=== PATIENT | male | born 2000 | race Two or more races ===

== ENCOUNTER 2019-02-22 23:58 | Emergency (ER) | payer SELFPAY ==
[~2019-02-22] VITALS: Ht 190.5 cm; Wt 86.2 kg
[2019-02-23 00:07] VITALS: BP 123/80
== END 2019-02-23 05:17 | disposition left against medical advice (07) ==
LOC: ER 02-23 00:02
DX: R11.2 Nausea with vomiting, unspecified (principal); Z53.21 Procedure and treatment not carried out due to patient leaving prior to being seen by health care provider